=== PATIENT | female | born 1930 | race Caucasian/White ===

== ENCOUNTER → 2020-10-19 | Outpatient (CLI) | payer OTHER ==
[~2020-10-19] MED LIST: ALDACTONE25 MG PO; BAYER CHEWABLE81 MG PO; LEVOXYL88 MCG PO; LIPITOR TAB 2020 MG PO; MESTINON TAB 6060 MG PO; METOPROLOL TART25 MG PO; MIDODRINE HCL2.5 MG PO; NORVASC 5 MG TAB5 MG PO; PROAMATINE 2.52.5 MG PO; TOPROL XL25 MG PO
== END ==
LOC: HEART 5 10-13 14:00
DX: M79.606 Pain in leg, unspecified (principal)

== ENCOUNTER 2021-08-30 22:57 | Observation (INO) | payer OTHER ==
[~2021-08-30] VITALS: Ht 162.6 cm; Wt 63.5 kg
[~2021-08-30 22:57] MED LIST changes: +LEVOXYL50 MCG PO; -LEVOXYL88 MCG PO
[2021-08-31 00:15] LABS: RED BLOOD COUNT 4.48 M/UL (4.00-5.10); WHITE BLOOD COUNT 17.2 K/UL (4.5-11.0)
[2021-08-31 10:51] LABS: HEMOGLOBIN 11.7 gm/dl (12.3-15.3); RED BLOOD COUNT 3.83 M/UL (4.00-5.10); WHITE BLOOD COUNT 10.2 K/UL (4.5-11.0)
[2021-08-31] MEDS ORDERED: PYRIDOSTIGMINE60 MG PO ×2 (11:30→11:36)
[2021-08-31] MEDS ORDERED: ALLOPURINOL300 MG PO (11:32)
[2021-08-31] MEDS ORDERED: DROXIDOPA100 MG PO ×2 (11:33→11:34)
[2021-08-31] MEDS ORDERED: VITAMIN B-12500 MCG PO (11:37)
[2021-08-31] MEDS ORDERED: SODIUM BICARBO650 M1 PO (11:37)
[2021-08-31] MEDS ORDERED: FISH OIL 1,0001 EACH PO (11:38)
[2021-08-31] MEDS ORDERED: ZOFRAN 4 MG TAB4 MG PO (16:58)
== END 2021-08-31 18:04 | disposition home or self-care (01) ==
LOC: ER1 22:57 → CDU 08-31 02:48 → MED SURG 4 08-31 08:49
PROVIDERS: Physician Assistant; ADMIT Family Medicine
DX: K52.9 Noninfective gastroenteritis and colitis, unspecified (principal); K29.00 Acute gastritis without bleeding; Z20.822 Contact with and (suspected) exposure to COVID-19; E03.9 Hypothyroidism, unspecified; N17.9 Acute kidney failure, unspecified; E86.0 Dehydration; I95.1 Orthostatic hypotension; I12.9 Hypertensive chronic kidney disease with stage 1 through stage 4 chronic kidney disease, or unspecified chronic kidney disease; N18.9 Chronic kidney disease, unspecified; M10.9 Gout, unspecified; I25.10 Atherosclerotic heart disease of native coronary artery without angina pectoris; E78.5 Hyperlipidemia, unspecified; M81.0 Age-related osteoporosis without current pathological fracture; E53.8 Deficiency of other specified B group vitamins; Z79.899 Other long term (current) drug therapy; Z91.041 Radiographic dye allergy status
CPT/HCPCS: 0240U; 71045; 80048; 80053; 81001; 82550; 82553; 83605; 83690; 84484; 85025; 85027; 87086; 93005; 96365; 96375; 99285; G0378; J1956; J7030

== ENCOUNTER 2021-09-27 03:37 | Emergency (ER) | payer OTHER ==
[~2021-09-27 03:37] MED LIST changes: +ALLOPURINOL300 MG PO; +DROXIDOPA100 MG PO; +FISH OIL 1,0001 EACH PO; +PYRIDOSTIGMINE60 MG PO; +SODIUM BICARBO650 M1 PO; +VITAMIN B-12500 MCG PO; +ZOFRAN 4 MG TAB4 MG PO
[2021-09-27 06:22] LABS: HEMOGLOBIN 12.9 gm/dl (12.3-15.3); RED BLOOD COUNT 4.12 M/UL (4.00-5.10); WHITE BLOOD COUNT 6.4 K/UL (4.5-11.0)
[2021-09-27 06:52] LABS: BUN/CREATININE RATIO 18 (0-10)
[2021-09-27 13:05] LABS: HEMOGLOBIN 12.6 gm/dl (12.3-15.3); RED BLOOD COUNT 4.01 M/UL (4.00-5.10); WHITE BLOOD COUNT 5.7 K/UL (4.5-11.0)
[2021-09-27] MEDS ORDERED: NORVASC2.5 MG PO (15:23)
== END 2021-09-27 15:55 | disposition home or self-care (01) ==
LOC: ER1 03:37
PROVIDERS: Emergency Medicine; Student in an Organized Health Care Education/Training Program
DX: S01.81XA Laceration without foreign body of other part of head, initial encounter (principal); R55 Syncope and collapse; I13.10 Hypertensive heart and chronic kidney disease without heart failure, with stage 1 through stage 4 chronic kidney disease, or unspecified chronic kidney disease; Z23 Encounter for immunization; W19.XXXA Unspecified fall, initial encounter; Y92.009 Unspecified place in unspecified non-institutional (private) residence as the place of occurrence of the external cause
CPT/HCPCS: 70450; 80053; 82550; 82553; 84484; 85025; 90471; 90715; 93005; 99284; J7030